=== PATIENT | female | born 1980 | race Caucasian/White ===

== ENCOUNTER 2021-07-12 00:21 | Inpatient (IN) | payer MEDICAID ==
[~2021-07-12] VITALS: Ht 167.6 cm; Wt 90.5 kg
[2021-07-12 01:51] LABS: BASOPHILS % (AUTO) 0.4 % (0-1); EOSINOPHILS # (AUTO) 0.1 X10'3 (0-0.9); EOSINOPHILS % (AUTO) 0.5 % (0-6); HEMATOCRIT 35.9 % (35.0-45.0); HEMOGLOBIN 11.8 g/dl (12.0-16.0); LYMPHOCYTES # (AUTO) 1.2 X10'3 (1.1-4.8); LYMPHOCYTES % (AUTO) 11.4 % (21-51); MEAN CORPUSCULAR HEMOGLOBIN 25.8 PG (27.0-31.0); MEAN CORPUSCULAR HGB CONC 32.8 g/dL (33.0-36.5); MEAN CORPUSCULAR VOLUME 78.5 FL (78-98); MEAN PLATELET VOLUME 7.3 FL (7.4-10.4); MONOCYTES # (AUTO) 0.6 X10'3 (0-0.9); NEUTROPHILS # (AUTO) 8.8 X10'3 (1.8-7.7); NEUTROPHILS % (AUTO) 81.7 % (42-75); PLATELET COUNT 399 X10'3 (140-440); RED BLOOD COUNT 4.57 X10'6 (4.20-5.60); RED CELL DISTRIBUTION WIDTH 17.2 % (11.5-14.5); WHITE BLOOD COUNT 10.8 X10'3 (4.5-11.0)
[2021-07-12 02:16] LABS: ALANINE AMINOTRANSFERASE 17 U/L (12-78); ALBUMIN 3.8 G/DL (3.4-5.0); ALKALINE PHOSPHATASE 89 IU/L (46-116); ANION GAP 10 (8-16); ASPARTATE AMINO TRANSFERASE 8 U/L (10-37); BILIRUBIN,TOTAL 0.2 MG/DL (0.1-1.0); BLOOD UREA NITROGEN 28 MG/DL (7-18); BUN/CREATININE RATIO 17.1 (6.6-38.0); CHLORIDE 101 MMOL/L (99-107); CREATININE 1.64 MG/DL (0.40-0.90); GLUCOSE 90 MG/DL (70-104); SODIUM 141 MMOL/L (135-145); TOTAL CARBON DIOXIDE 29.7 MMOL/L (24-32); TOTAL PROTEIN 7.7 G/DL (6.4-8.2); TROPONIN I < 0.04 NG/ML (0.0-0.05); eGFR 35 ML/MIN
[2021-07-12 02:29] LABS: POTASSIUM 2.5 MMOL/L (3.5-5.1)
[2021-07-12] MEDS ORDERED: potassium Cl 20 mEq SR tablet PO STA (02:42)
[2021-07-12] MEDS ORDERED: LISI40TA13 PO (03:42)
[2021-07-12] MEDS ORDERED: NIFE-33 PO (03:42)
[2021-07-12] MEDS ORDERED: HYDR50TA4 PO (03:42)
[2021-07-12] MEDS ORDERED: magnesium 2GM in 50ml NS 50 ML IV ONE (04:35)
[2021-07-12] MEDS ORDERED: acetaminophen 325mg tablet PO PRN (04:55)
[2021-07-12] MEDS ORDERED: magnesium hydroxide 30ml (MOM) UD suspension PO PRN (04:55)
[2021-07-12] MEDS ORDERED: mag hydrox/Alum hydrox/simeth 30ml oral suspension PO PRN (04:55)
[2021-07-12] MEDS ORDERED: ondansetron/PF 4mg/2ml inj IV PRN (04:55)
[2021-07-12] MEDS ORDERED: magnesium 4gm in 100ml NS 100 ML IV PRN (05:00)
[2021-07-12] MEDS ORDERED: potassium Cl 20 mEq SR tablet PO PRN ×2 (05:00)
[2021-07-12] MEDS ORDERED: magnesium Cl slow-release 64mg tablet PO PRN (05:00)
[2021-07-12] MEDS ORDERED: potassium Cl 40MEQ/1/2NS 520ml 520 ML IV PRN (05:00)
[2021-07-12 05:10] LABS: MAGNESIUM 2.3 MG/DL (1.5-2.4)
[2021-07-12] MEDS: potassium Cl 20mEq in NS 1,000 ML IV SCH ×2 (05:19→16:30)
--- NOTE | 2021-07-12 06:10 | NUR ---
pharmacist in room to review pt home medication.
[2021-07-12] MEDS ORDERED: METR45GE TP (06:14)
[2021-07-12] MEDS ORDERED: CHLO50TA PO (06:14)
[2021-07-12] MEDS ORDERED: VALA100031 PO (06:14)
[2021-07-12] MEDS ORDERED: NIFE30TA95 PO (06:15)
[2021-07-12] MEDS: K and/or MAG REPLACEMENT MC SCH ×2 (08:00→20:00)
[2021-07-12] MEDS: docusate sod 100mg capsule PO SCH ×2 (08:00→20:14)
[2021-07-12] MEDS: valacyclovir 500mg tablet PO SCH (09:55)
[2021-07-12] MEDS: metroNIDAZOLE 0.75% 45gm topical cream TP SCH ×2 (09:56→20:14)
[2021-07-12 10:02] LABS: ALBUMIN 3.1 G/DL (3.4-5.0); ANION GAP 11 (8-16); BLOOD UREA NITROGEN 25 MG/DL (7-18); BUN/CREATININE RATIO 22.9 (6.6-38.0); CALCIUM 8.6 MG/DL (8.5-10.1); CHLORIDE 104 MMOL/L (99-107); CREATININE 1.09 MG/DL (0.40-0.90); GLUCOSE 133 MG/DL (70-104); SODIUM 141 MMOL/L (135-145); eGFR 55 ML/MIN
[2021-07-12 10:06] LABS: POTASSIUM 2.6 MMOL/L (3.5-5.1)
--- NOTE | 2021-07-12 10:26 | NUR ---
pt was seen here on 07-02-21 with left arm pain.
--- NOTE | 2021-07-12 11:23 | NUR ---
PT SITTING UP RESTING WITH EYES CLOSED NO NEEDS AT THIS TIME
[2021-07-12 14:55] VITALS: BP 141/84
[2021-07-12 15:00] VITALS: BP 114/76
--- NOTE | 2021-07-12 18:42 | NUR ---
Problems reprioritized. Patient report given, questions answered & plan of care reviewed with PRESTON HELM.
[2021-07-12] MEDS ORDERED: lactobacillus rhamnosus 10,000 MMU CELLS/CAPSULE PO SCH (20:00)
[2021-07-12 22:00] VITALS: BP 108/78
[2021-07-13] MEDS: potassium Cl 20mEq in NS 1,000 ML IV SCH ×2 (00:55→10:55)
[2021-07-13 02:00] VITALS: BP 154/98
[2021-07-13 06:00] VITALS: BP 111/46
[2021-07-13 06:16] LABS: BASOPHILS % (AUTO) 0.7 % (0-1); EOSINOPHILS # (AUTO) 0.2 X10'3 (0-0.9); EOSINOPHILS % (AUTO) 2.7 % (0-6); HEMATOCRIT 31.6 % (35.0-45.0); HEMOGLOBIN 9.9 g/dl (12.0-16.0); LYMPHOCYTES # (AUTO) 2.3 X10'3 (1.1-4.8); LYMPHOCYTES % (AUTO) 37.6 % (21-51); MEAN CORPUSCULAR HGB CONC 31.4 g/dL (33.0-36.5); MEAN CORPUSCULAR VOLUME 79.4 FL (78-98); MEAN PLATELET VOLUME 7.5 FL (7.4-10.4); MONOCYTES # (AUTO) 0.6 X10'3 (0-0.9); MONOCYTES % (AUTO) 9.4 % (2-12); NEUTROPHILS % (AUTO) 49.6 % (42-75); PLATELET COUNT 350 X10'3 (140-440); RED BLOOD COUNT 3.98 X10'6 (4.20-5.60); RED CELL DISTRIBUTION WIDTH 17.2 % (11.5-14.5)
[2021-07-13 06:23] LABS: ALANINE AMINOTRANSFERASE 17 U/L (12-78); ALBUMIN/GLOBULIN RATIO 0.9 (1.1-1.5); ALKALINE PHOSPHATASE 73 IU/L (46-116); ANION GAP 7 (8-16); ASPARTATE AMINO TRANSFERASE 11 U/L (10-37); BILIRUBIN,TOTAL 0.2 MG/DL (0.1-1.0); BLOOD UREA NITROGEN 19 MG/DL (7-18); BUN/CREATININE RATIO 22.4 (6.6-38.0); CALCIUM 8.3 MG/DL (8.5-10.1); CHLORIDE 108 MMOL/L (99-107); CREATININE 0.85 MG/DL (0.40-0.90); GLUCOSE 85 MG/DL (70-104); MAGNESIUM 2.2 MG/DL (1.5-2.4); SODIUM 143 MMOL/L (135-145); TOTAL CARBON DIOXIDE 27.7 MMOL/L (24-32); TOTAL PROTEIN 6.2 G/DL (6.4-8.2); eGFR 74 ML/MIN
--- NOTE | 2021-07-13 06:23 | NUR ---
Problems reprioritized. Patient report given, questions answered & plan of care reviewed with Joy JOHNSTON.
[2021-07-13] MEDS: docusate sod 100mg capsule PO SCH (07:51)
[2021-07-13] MEDS: metroNIDAZOLE 0.75% 45gm topical cream TP SCH (07:52)
[2021-07-13] MEDS: valacyclovir 500mg tablet PO SCH (07:52)
[2021-07-13] MEDS: K and/or MAG REPLACEMENT MC SCH (08:00)
--- NOTE | 2021-07-13 08:13 | NUR ---
page to physician PAGER ID: [phone] MESSAGE: [id number] Santhosh- Eliza 3.0; will continue to replace. Joy [id number]
[2021-07-13] MEDS ORDERED: potassium Cl 20 mEq SR tablet PO STA (09:15)
[2021-07-13 11:00] VITALS: BP 137/85
[2021-07-13] MEDS ORDERED: potassium Cl 20 mEq SR tablet PO ONE (12:30)
[2021-07-13 15:00] VITALS: BP 153/109
--- NOTE | 2021-07-13 15:36 | NUR ---
PAGER ID: [phone] MESSAGE: [id number] Santhosh- Blood pressure 161/103. Joy [id number]
--- NOTE | 2021-07-13 16:37 | NUR ---
PAGER ID: [phone] MESSAGE: [id number] Santhosh- Potassium 3.6. Discharge? BP 161/103 Joy 30
[2021-07-13] MEDS ORDERED: HYDR-4069 PO (16:44)
[2021-07-13] MEDS ORDERED: POTA10TA36 PO (16:44)
[2021-07-13] MEDS ORDERED: POTA20TA19 PO (16:44)
[2021-07-13] MEDS ORDERED: lisinopril 20mg tablet PO ONE (16:45)
[2021-07-13] MEDS ORDERED: NIFEdipine XL 30mg tablet PO ONE (16:45)
[2021-07-13 17:10] VITALS: BP_SYST 161
--- NOTE | 2021-07-13 17:32 | NUR ---
Discharge instructions given to patient and patient verbalized understanding. PIV removed with catheter intact. Patient transferred off unit via wheelchair to brother's vehicle.
== END 2021-07-13 17:38 | disposition home or self-care (01) | DRG 425 ==
LOC: ER 00:24 → ED HOLD 04:55 → UNDOADMIN 04:55 → ED HOLD 04:57 → UNDOADMIN 04:57 → ED HOLD 06:20 → PCU 3S 14:00 → ED HOLD 14:00
PROVIDERS: ADMIT Internal Medicine; ATTEND Family Medicine
DX: E87.6 Hypokalemia (principal); N17.9 Acute kidney failure, unspecified; I95.9 Hypotension, unspecified; I10 Essential (primary) hypertension; I77.3 Arterial fibromuscular dysplasia; Z20.822 Contact with and (suspected) exposure to COVID-19; T50.2X5A Adverse effect of carbonic-anhydrase inhibitors, benzothiadiazides and other diuretics, initial encounter; Y92.89 Other specified places as the place of occurrence of the external cause; Z88.0 Allergy status to penicillin; Z88.2 Allergy status to sulfonamides; Z79.899 Other long term (current) drug therapy; Z98.891 History of uterine scar from previous surgery
CPT/HCPCS: 36415; 71045; 80048; 80053; 83735; 83880; 84132; 84484; 85025; 87081; 87635; 93005; 99285; G0378; J3475; J3480